=== PATIENT | female | born 1960 | race Two or more races ===

== ENCOUNTER 2016-10-12 15:28 | Emergency (ER) | payer OTHER, MEDICAID ==
--- NOTE | 2016-10-12 15:36 | ER Document Report ---
ED Medical Screen (RME) - General Stated Complaint: THUMB INJURY/WORK Mode of Arrival: Ambulatory Information source: Patient Notes: c/o left thumb injury that occurred after she hit her thumb and cut it on the plastic over a lawnmower blade. She was using a box attacher. This occurred approximately 30 minutes [employer]. She is UTD on tetanus. Thumb is wrapped currently. I have greeted and performed a rapid initial assessment of this patient. A comprehensive ED assessment and evaluation of the patient, analysis of test results and completion of the medical decision making process will be conducted by additional ED providers. TRAVEL OUTSIDE OF THE [place] IN LAST 30 DAYS: No Past Medical History Infectious Medical History: Reports: Hx HIV - Immunizations Hx Diphtheria, Pertussis, Tetanus Vaccination: - unk Physical Exam - Vital signs Vitals: Temp Pulse Resp BP Pulse Ox 97.9 F 83 16 135/87 H 98 10/12/16 15:33 10/12/16 15:33 10/12/16 15:33 10/12/16 15:33 10/12/16 15:33 Interpretation: Hypertensive Course - Vital Signs Vital signs: Temp Pulse Resp BP Pulse Ox 97.9 F 83 16 135/87 H 98 10/12/16 15:33 10/12/16 15:33 10/12/16 15:33 10/12/16 15:33 10/12/16 15:33
[2016-10-12] MEDS ORDERED: LIDOCAINE 4%/TETRACAINE 0.5%/EPI 0.18% 5 ML TOPICAL SOLN TOP ONE (16:40)
[2016-10-12] MEDS ORDERED: ONDANSETRON 4 MG TAB.RAPDIS PO ONE (16:41)
[2016-10-12] MEDS ORDERED: IBUPROFEN 600 MG TABLET PO ONE (16:41)
--- NOTE | 2016-10-12 16:42 | ER Document Report ---
HPI - HPI Patient complains to provider of: cut left thumb at work at [place] Onset: Just prior to arrival Onset/Duration: Sudden Quality of pain: Burning Pain Level: 3 Context: 56 yo female accidentally cut her left thumb with box sealing machine catcher at [place] while working. Tetranus is current. Associated Symptoms: None Exacerbated by: Movement Relieved by: Denies Similar symptoms previously: No Recently seen / treated by doctor: No - ROS ROS below otherwise negative: Yes Systems Reviewed and Negative: Yes All other systems reviewed and negative - REPRODUCTIVE LMP: menapause Reproductive: DENIES: : - DERM Skin Color: Normal Past Medical History - General Information source: Patient - Social History Smoking Status: Never Smoker Chew tobacco use (# tins/day): No Frequency of alcohol use: None Drug Abuse: None Lives with: Spouse/Significant other Family History: Reviewed & Not Pertinent Patient has suicidal ideation: No Patient has homicidal ideation: No - Medical History Medical History: Negative Renal/ Medical History: Denies: Hx Peritoneal Dialysis Infectious Medical History: Reports: Hx HIV Surgical Hx: Negative - Immunizations Hx Diphtheria, Pertussis, Tetanus Vaccination: - unk Vertical Provider Document - CONSTITUTIONAL Agree With Documented VS: Yes Exam Limitations: No Limitations General Appearance: No Apparent Distress - INFECTION CONTROL TRAVEL OUTSIDE OF THE [place] IN LAST 30 DAYS: No - HEENT HEENT: Normocephalic - RESPIRATORY O2 Sat by Pulse Oximetry: 98 - MUSCULOSKELETAL/EXTREMETIES Musculoskeletal/Extremeties: MAEW, FROM, Tender - NEURO Level of Consciousness: Awake, Alert Motor/Sensory: No Motor Deficit, No Sensory Deficit - DERM Integumentary: Laceration - after L.E.T., explored wound 1cm superficial flap cut ulnar side of distal phalanx left thumb. Course - Vital Signs Vital signs: Temp Pulse Resp BP Pulse Ox 97.9 F 83 16 135/87 H 98 10/12/16 15:33 10/12/16 15:33 10/12/16 15:33 10/12/16 15:33 10/12/16 15:33 Discharge - Discharge Clinical Impression: superficial flap cut ulnar left thumb Condition: Good Disposition: HOME, SELF-CARE Instructions: Non-Sutured Laceration ([facility]), Antibiotic Ointment Protection ([facility] ), Acetaminophen, Use of Feee-Sps-Phtrsix Ibuprofen ([facility]) Additional Instructions: Keep the dressing on for 2 days Wash gently with soap and water and repeat bandage daily Return to the emergency room any concerns Forms: Return to Work
[2016-10-12 17:59] VITALS: BP 120/66
== END 2016-10-12 17:55 | disposition home or self-care (01) ==
LOC: ER 15:28
DX: S61.012A Laceration without foreign body of left thumb without damage to nail, initial encounter (principal); W45.8XXA Other foreign body or object entering through skin, initial encounter; Y93.89 Activity, other specified; Y92.512 Supermarket, store or market as the place of occurrence of the external cause; Y99.0 Civilian activity done for income or pay; Z21 Asymptomatic human immunodeficiency virus [HIV] infection status
CPT/HCPCS: 99282; S0119; J3490